=== PATIENT | male | born 1975 | race Caucasian/White ===

== ENCOUNTER 2017-10-08 07:25 | Day surgery (SDC) | payer BC ==
[~2017-10-08 07:25] MED LIST: Buffered Lidocaine 0.9% SYRIN* 5 ML/SYR SYRINGE INTRADERM ONE; Dexamethasone IV* 4 MG/ML 1 ML (4 MG) IV SLOW PU ONE; Famotidine IV* 10 MG/ML 2 ML (20 mg) IV ONE
[2017-10-08] MEDS ORDERED: Ketorolac INJ* 30 MG/ML 1 ML VIAL ONE (07:28)
[2017-10-08] MEDS ORDERED: Dexamethasone IV* 4 MG/ML 1 ML (4 MG) ONE (07:28)
[2017-10-08] MEDS ORDERED: Famotidine IV* 10 MG/ML 2 ML (20 mg) ONE (07:28)
[2017-10-08] MEDS ORDERED: ceFAZolin 2 GM (*##) 2 GM/100 ML BAG USE CEFA2SOL IVPB ONE (07:29)
[2017-10-08] MEDS ORDERED: fentaNYL* 50 MCG/ML 2 ML VIAL (100 MCG VIAL) ONE (09:39)
[2017-10-08] MEDS ORDERED: Midazolam* 1 MG/ML 2 ML VIAL (2 MG) ONE (09:39)
[2017-10-08] MEDS ORDERED: Rocuronium* 10 MG/ML VIAL ONE (09:43)
[2017-10-08] MEDS ORDERED: Bupivacaine 0.25% SDV* 30 ML ONE (09:51)
[2017-10-08] MEDS ORDERED: DiMENhydriNATE IV* 50 MG/ML VIAL IV PUSH PRN (10:44)
[2017-10-08] MEDS ORDERED: fentaNYL* 50 MCG/ML 2 ML VIAL (100 MCG VIAL) IV PRN (10:44)
[2017-10-08] MEDS ORDERED: Naloxone* 0.4 MG/ML 1 ML VIAL IV PRN (10:44)
[2017-10-08] MEDS ORDERED: Propofol* 10 MG/ML 20 ML BTL IV PUSH ONE (10:48)
[2017-10-08] MEDS ORDERED: Ondansetron INJ* 2 MG/ML VIAL ONE (10:48)
[2017-10-08] MEDS ORDERED: Succinylcholine* 20 MG/ML 10 ML VIAL ONE (10:48)
--- NOTE | 2017-10-08 11:14 | OP ---
Operative Report - Blank - Operative Report Date of Operation: 10/08/17 Note: Preop Dx: bilateral inguinal hernias Postop Dx: same; direct Procedure: laparoscopic repair bilateral inguinal hernias w/mesh Anesthesia: GET Surgeon: Adin Asst: BHARATH Trejo; LIVIER Fields Fluids: 700 ml RL EBL: 50 ml Drains: none Specimen: none Findings: dictated
[2017-10-08] MEDS ORDERED: HYDROcodone/ACETAMIN 5-325 MG* 1 TAB PO PRN ×2 (11:18)
[2017-10-08] MEDS ORDERED: HYDROcodone/ACETAMIN 5-325 MG* 1 TAB ONE (11:40)
[2017-10-08 12:52] VITALS: BP 138/93
--- NOTE | 2017-10-09 12:40 | OP ---
CC: Dr. Oakley; Dr. Merino OPERATIVE REPORT: DATE OF OPERATION: 10/08/17 DATE OF : 73 SURGEON: Omar Oakley MD DRIER FEEDER: BHARATH Gonzalez ANESTHESIOLOGIST: Dr. Mukherjee. ANESTHESIA: General anesthetic, local infiltration. PRE-OP DIAGNOSIS: Bilateral inguinal hernias. POST-OP DIAGNOSIS: Bilateral inguinal hernias. OPERATIVE PROCEDURE: Laparoscopic repair of bilateral inguinal hernias with mesh. DESCRIPTION OF PROCEDURE: The patient was supine on the operative table. After adequate general ane sthetic, compression stockings, Leyla Hugger warmer, and intravenous antibiotics, the abdomen was clip ped and prepped with antiseptic, draped in a sterile fashion. Local infiltrative anesthesia was admi nistered. A small infraumbilical incision was created and the preperitoneal plane was developed. Th e scope was inserted. Insufflation was carried out and blunt dissection was used dissect the plane f urther. There was a little attachment on the left side and some tears in the peritoneum were identif ied. The hernias were both direct space and in each case, a large hernia patch was chosen for the ap propriate side. They were trimmed a little in the craniocaudad direction to take off about a centime ter and fit into the space in the usual fashion. Tacks were used to attach each one to the tubercle to Dylan's ligament and to the musculature above. The mesh met in the midline and everything was in good condition. The insufflation was allowed to escape. Then at the umbilicus, the cannula was eligio soto into the peritoneal space and insufflated and some tears were noted in the peritoneum on the left side. The tacker was used to tack up the peritoneum to cover the mesh, so there was not exposed mes h for bowel adherence. The cannulae were then removed. The umbilical fascia was closed with 0 Vicry l and 5-0 Vicryl for all the incisions. He tolerated the procedure well. He was awakened and audra t to Recovery in good condition. There were no complications. No drains. No pathologic specimens. Sponge and instrument counts were correct. Estimated blood loss less than 20 mL. [id number]/[facility] #: [id number]
== END 2017-10-08 12:54 | disposition home or self-care (01) ==
LOC: OR 07:25
PROVIDERS: ATTEND Surgery
DX: K40.20 Bilateral inguinal hernia, without obstruction or gangrene, not specified as recurrent (principal); E78.5 Hyperlipidemia, unspecified; M19.90 Unspecified osteoarthritis, unspecified site
CPT/HCPCS: C1781; J0330; J1100; J1885; J2250; J2405; J2704; J3010

== ENCOUNTER 2022-07-29 08:36 | Inpatient (IN) ==
[~2022-07-29 08:36] MED LIST changes: -Buffered Lidocaine 0.9% SYRIN* 5 ML/SYR SYRINGE INTRADERM ONE; +Buffered Lidocaine 1% SYRIN 1 ml INTRADERM ONE; -Dexamethasone IV* 4 MG/ML 1 ML (4 MG) IV SLOW PU ONE; -Famotidine IV* 10 MG/ML 2 ML (20 mg) IV ONE; +Lactated Ringers 1000 ml BAG 1,000 ML IV SCH
[2022-07-29] MEDS ORDERED: ceFAZolin 2 GM in NS PREMIX 2 GM/100 ML BAG IVPB ONE (09:08)
[2022-07-29] MEDS ORDERED: Buffered Lidocaine 1% SYRIN 1 ml ONE (09:08)
[2022-07-29] MEDS ORDERED: Propofol 10 mg/ml 100 ML BTL 1,000 MG/100 ML BTL ONE (10:09)
[2022-07-29] MEDS ORDERED: fentaNYL 100 mcg/2 ml 50 MCG/ML VIAL ONE (10:12)
[2022-07-29] MEDS ORDERED: Midazolam 5 mg/5 ml VIAL 1 mg/ml 5 ml VIAL (5 mg) ONE (10:12)
[2022-07-29] MEDS ORDERED: Phenylephrine IV 10 MG/ML 1 ml VIAL ONE (10:14)
[2022-07-29] MEDS ORDERED: Dexamethasone IV 4 MG/ML VIAL 1 ml VIAL ONE (10:14)
[2022-07-29] MEDS ORDERED: Ondansetron 4 mg VIAL 2 MG/ML 2 ml VIAL ONE (10:14)
[2022-07-29] MEDS ORDERED: Acetaminophen IV 1 GM/100ML 1,000 MG/100 ML BAG IV ONE (11:32)
[2022-07-29] MEDS ORDERED: Magnesium Hydroxide LIQ 30 ML UDC PO PRN (12:23)
[2022-07-29] MEDS ORDERED: Lactulose 30 ml UDC PO PRN (12:23)
[2022-07-29] MEDS ORDERED: Ondansetron 4 mg VIAL 2 MG/ML 2 ml VIAL IV PRN ×2 (12:23→13:32)
[2022-07-29] MEDS ORDERED: Morphine 2 MG/ML SYRINGE IV PRN (12:23)
[2022-07-29] MEDS ORDERED: Ondansetron ODT 4 mg TAB 4 MG TAB PO PRN (12:23)
[2022-07-29] MEDS ORDERED: Naloxone 0.4 mg VIAL 0.4 mg/ml 1 ml VIAL IV PRN (13:32)
[2022-07-29] MEDS ORDERED: Scopolamine 1 mg/72hr PATCH TRANSDERM PRN (13:32)
[2022-07-29] MEDS ORDERED: fentaNYL 100 mcg/2 ml 50 MCG/ML VIAL IV PRN (13:32)
[2022-07-29] MEDS: Lactated Ringers 1000 ml BAG 1,000 ML IV SCH (15:35)
[2022-07-29] MEDS: ceFAZolin 1 GM ADVAN 1 GM in NS 0.9% 50 ML 50 ML IVPB SCH (20:33)
[2022-07-29] MEDS: Magnesium Hydroxide LIQ 30 ML UDC PO SCH (20:38)
[2022-07-30] MEDS: Lactated Ringers 1000 ml BAG 1,000 ML IV SCH (02:55)
[2022-07-30] MEDS: ceFAZolin 1 GM ADVAN 1 GM in NS 0.9% 50 ML 50 ML IVPB SCH ×2 (04:02→11:24)
[2022-07-30 06:27] LABS: Hematocrit 36 % (42-52); Hemoglobin 12.3 g/dL (14.0-18.0); Mean Platelet Volume 7.6 fL (7.4-10.4); Platelet Count 229 10^3/uL (150-450)
[2022-07-30 07:19] LABS: Calcium 8.2 mg/dL (8.6-10.3); Potassium 4.3 mmol/L (3.5-5.0)
[2022-07-30 07:25] LABS: Creatinine, Serum 0.85 mg/dL (0.67-1.17); eGFR CKD-EPI 107.2 (>60)
[2022-07-30] MEDS: Magnesium Hydroxide LIQ 30 ML UDC PO SCH (07:59)
[2022-07-30] MEDS ORDERED: Vitamin THERAPEUTIC TAB PO SCH (09:00)
[2022-07-30 11:17] VITALS: BP 130/77
== END 2022-07-30 12:40 | disposition home or self-care (01) | DRG 301 ==
LOC: SSU → AA 08:36 → INTOOBSV 08:36
PROVIDERS: ADMIT Orthopaedic Surgery Adult Reconstructive Orthopaedic Surgery; ATTEND Orthopaedic Surgery Adult Reconstructive Orthopaedic Surgery